=== PATIENT | female | born 1965 | race Caucasian/White ===

== ENCOUNTER 2016-08-15 13:53 | Outpatient (CLI) | payer OTHER | END 2016-08-15 13:54 | LOC: LABRHC 13:53 | PROVIDERS: ATTEND Family Medicine | DX: D22.61 Melanocytic nevi of right upper limb, including shoulder (principal) ==

== ENCOUNTER 2018-03-28 08:33 | Outpatient (CLI) | payer OTHER ==
[2018-03-28 09:37] LABS: eGFR (Non-African) > 60
[2018-03-28 17:40] LABS: BASO % 1.6 % (0.0-1.5); EOS % 3.5 % (0.0-6.8); LYMPH ABS # 1.75 thou/uL (0.60-4.00); MCH. 29.1 pg (28.0-34.0); MCV 88.3 fL (80.0-100.0); MONOCYTE % 8.9 % (0.0-11.0); MONOCYTE ABS # 0.52 thou/uL (0.00-0.90); PLATELET COUNT 270 thou/uL (130-400)
== END 2018-03-28 08:35 ==
LOC: LAB 08:33
PROVIDERS: ATTEND Family Medicine
DX: Z00.00 Encounter for general adult medical examination without abnormal findings (principal)
CPT/HCPCS: 36415; 80053; 80061; 84443; 85025

== ENCOUNTER 2019-01-10 06:16 | Emergency (ER) | payer OTHER ==
[2019-01-10] MEDS ORDERED: 0.9 % SODIUM CHLORIDE 1,000 ML IV ONE ×2 (06:38→06:40)
--- NOTE | 2019-01-10 06:42 | ED Physician Documentation ---
General Adult - HISTORIAN Historian: patient - HPI Stated Complaint: syncopal episode Chief Complaint: General Adult Onset: minutes Timing: better Severity: moderate Further Comments: yes (Pt is a 53 yo female who had a syncopal episode this am and came to ER by ambulance. Pt was went to the bathroom and was having a bm when the sycopal episode occurred. said pt was out for what seemed like 2 minutes, that she was staring blankly at him and that she was diaphoretic and pale. Pt has little PMHx. She takes lisinopril 10 mg qd for HTN. She does have an unusual bowel history. She ordinarily can go for many days, as much as a week, she says, without a bm, and then have an urgent bm. Pt states that these infrequent bm's start as solid stool, and then become watery, and that she then can have a number of bm's in the space of an hour. After arriving in ER, pt had a bm that had a significant amount of blood. She has had blood in her bm before after one of these episodes but not very often and not as much blood. Pt appears pale on presentation, with SBP about 102/74.) - ROS CONST: weakness EYES/ENT: none CVS/RESP: none GI/: other (difficult bm, blood in stool) MS/SKIN/LYMPH: none - PAST HX Past History: hypertension - SOCIAL HX Smoking History: non-smoker - FAMILY HX Family History: No - REVIEWED ASSESSMENTS Nursing Assessment Reviewed: Yes Vitals Reviewed: Yes <Sunita Pascual - Last Filed: 01/10/19 07:01> - ROS NEURO/PSYCH: denies: headache - PAST HX Other History: none Surgeries/Procedures: none - SOCIAL HX Alcohol Use: none Drug Use: none - VITAL SIGNS Vital Signs: Vital Signs Temp Pulse Resp BP Pulse Ox 96.7 F L 76 22 102/74 99 01/10/19 06:17 01/10/19 06:17 01/10/19 06:17 01/10/19 06:17 01/10/19 06:17 <Gladys Keita - Last Filed: 01/10/19 08:22> - PAST HX Allergies/Adverse Reactions: Allergies Allergy/AdvReac Type Severity Reaction Status Date / Time No Known Drug Allergies Allergy Verified 01/10/19 06:35 Progress - Progress Progress: NS 1 L IVF Care transferred to Gladys Monterolley at 0700. <Sunita Pascual - Last Filed: 01/10/19 07:01> - EKG/XRAY/CT EKG: NSR Comments: 0627 NSR [address] changes <Gladys Keita - Last Filed: 01/10/19 08:22> ED Results Lab/Radiology - Orders Orders: ED Orders Category Date Time Status Continuous EKG monitoring Q30M Care 01/10/19 06:39 Ordered Continuous Pulse Oximetry Q30M Care 01/10/19 06:[address] IV Lock 1T Care 01/10/19 06:39 Ordered CHEST 2VIEW [RAD] Stat Exams 01/10/19 Ordered CBC/PLATELET/DIFF Routine Lab 01/10/19 06:39 Ordered CMP Routine Lab 01/10/19 06:39 Ordered CREATINE KINASE Routine Lab 01/10/19 06:39 Ordered TROPONIN I Stat Lab 01/10/19 06:39 Ordered NORMAL SALINE @ 1000 MLS/HR ( 1000ml BOLUS) Med 01/10/19 06:38 Ordered 0.9 % Sodium Chloride [Normal Saline] 1,000 ml IV Q1H Oxygen Daily Oxygen 01/10/19 06:45 Ordered EKG WITH COMPARISON Stat Ther 01/10/19 06:39 Ordered <Sunita Pascual - Last Filed: 01/10/19 07:01> - Radiology Radiology Impressions: Report Submission Date: Jan 10, 2019 7:24:27 AM CDT Patient Study Name: MARK RIVERA Date: Jan 10, 2019 6:42:46 AM CDT Modality Type: DX Gender: F Description: CHEST 2VIEW : 69 Institution: [facility] Physician: SUNITA PASCUAL [facility] HISTORY: 53-year-old female with syncope COMPARISON: None available TECHNIQUE: 2 views of the chest were performed. FINDINGS: No pneumothorax, consolidative infiltrates, pleural effusions, or pulmonary edema. There is a calcified granuloma in the right upper lobe. The heart is not enlarged. IMPRESSION: Old granulomatous disease of the chest without evidence of acute intrathoracic process. Electronically signed on Jan 10, 2019 7:24:27 AM CDT by: Jose Courtney Report Submission Date: Jan 10, 2019 7:25:38 AM CDT Patient Study Name: MARK RIVERA Date: Jan 10, 2019 6:59:15 AM CDT Modality Type: DX Gender: F Description: ABDOMEN 1VIEW : 69 Institution: [facility] Physician: SUNITA PASCUAL - HISTORY: 53-year-old female with abdominal pain. COMPARISON: None available TECHNIQUE: AP views of the abdomen were performed. FINDINGS: No abnormal bowel dilatation. Gas is present in the distal colon. No abnormal calcifications are identified overlying the kidneys. There are numerous phleboliths in the pelvis. IMPRESSION: No evidence of bowel obstruction. Electronically signed on Jan 10, 2019 7:25:38 AM CDT by: Jose Courtney - Orders Orders: ED Orders Category Date Time Status Continuous EKG monitoring Q30M Care 01/10/19 06:39 Active Continuous Pulse Oximetry Q30M Care 01/10/19 06:[address] IV Lock 1T Care 01/10/19 06:39 Active ABDOMEN 1VIEW [RAD] Stat Exams 01/10/19 Ordered CHEST 2VIEW [RAD] Stat Exams 01/10/19 Ordered CBC/PLATELET/DIFF Routine Lab 01/10/19 06:39 Ordered CMP Routine Lab 01/10/19 06:39 Ordered CREATINE KINASE Routine Lab 01/10/19 06:39 Ordered TROPONIN I Stat Lab 01/10/19 06:39 Ordered 0.9 % Sodium Chloride [Normal Saline] 1,000 ml Med 01/10/19 06:40 Discontinued IV .STK-MED 0.9 % Sodium Chloride [Normal Saline] 1,000 ml Med 01/10/19 06:38 Active IV Q1H Oxygen Daily Oxygen 01/10/19 06:45 Ordered EKG WITH COMPARISON Stat Ther 01/10/19 06:39 Ordered <Gladys Keita - Last Filed: 01/10/19 08:22> General Adult Physical Exam - PHYSICAL EXAM GENERAL APPEARANCE: mild distress EENT: pharynx normal NECK: normal inspection, supple RESPIRATORY: no resp distress, chest non-tender, breath sounds normal CVS: reg rate & rhythm, heart sounds normal, equal pulses ABDOMEN: soft, no organomegaly, decreased BS BACK: normal inspection, no CVA tenderness SKIN: pallor EXTREMITIES: non-tender, normal range of motion, no evidence of injury NEURO: oriented X3, motor nml, sensation nml <Sunita Pascual - Last Filed: 01/10/19 07:01> Discharge <Sunita Pascual - Last Filed: 01/10/19 07:01> Comments: Cause of syncope is likely a vasovagal event in combination with mild dehydration. Decision to Admit: NO Date of Decison to Admit: 01/10/19 Decision Time: 07:50 <Gladys Keita - Last Filed: 01/10/19 08:22> Clincal Impression: Syncopal episode, Dehydration Referrals: Alisha Ibrahim MD [Primary Care Provider] - Additional Instructions: 1. Drink plenty of water to maintain proper hydration. Target daily intake 2-3 liters per 24 hours. Avoid caffeine and alcohol 2. Follow up with Dr. Ibrahim within 1 week. Discuss referral for colonoscopy. 3. Take daily probiotic and stool softener 4. Return to ER for new or worsening symptoms Condition: Stable Disposition: 01 HOME, SELF-CARE
[2019-01-10 07:27] LABS: SEGMENTED NEUTROPHILS % 60 % (39-79)
--- NOTE | 2019-01-10 07:35 | Diagnostic Imaging Report ---
SUNITA MCDANIELS [facility] [address] [facility] [address] [address] Report Submission Date: Jan 10, 2019 7:24:27 AM CDT Patient Study Name: MARK RIVERA Date: Jan 10, 2019 6:42:46 AM CDT Modality Type: DX Gender: F Description: CHEST 2VIEW : 69 Institution: [facility] Physician: SUNITA MCDANIELS HISTORY: 53-year-old female with syncope COMPARISON: None available TECHNIQUE: 2 views of the chest were performed. FINDINGS: No pneumothorax, consolidative infiltrates, pleural effusions, or pulmonary edema. There is a calcified granuloma in the right upper lobe. The heart is not enlarged. IMPRESSION: Old granulomatous disease of the chest without evidence of acute intrathoracic process. Electronically signed on Jan 10, 2019 7:24:27 AM CDT by: Jose CORDOBA
--- NOTE | 2019-01-10 07:35 | Diagnostic Imaging Report ---
SUNITA MCDANIELS [facility] [address] [facility] [address] [place] [address]. [id number] Report Submission Date: Jan 10, 2019 7:25:38 AM CDT Patient Study Name: MARK RIVERA Date: Jan 10, 2019 6:59:15 AM CDT Modality Type: DX Gender: F Description: ABDOMEN 1VIEW : 69 Institution: [facility] Physician: SUNITA MCDANIELS HISTORY: 53-year-old female with abdominal pain. COMPARISON: None available TECHNIQUE: AP views of the abdomen were performed. FINDINGS: No abnormal bowel dilatation. Gas is present in the distal colon. No abnormal calcifications are identified overlying the kidneys. There are numerous phleboliths in the pelvis. IMPRESSION: No evidence of bowel obstruction. Electronically signed on Jan 10, 2019 7:25:38 AM CDT by: Jose CORDOBA
[2019-01-10 07:43] LABS: eGFR (Non-African) > 60
[2019-01-10 08:41] VITALS: BP 102/72
== END 2019-01-10 08:33 | disposition home or self-care (01) ==
LOC: ED 06:16
DX: R55 Syncope and collapse (principal); E86.0 Dehydration
CPT/HCPCS: 36415; 71046; 74018; 80053; 82550; 84484; 85025; 93005; 96361; 96374; 99283; 99284; J7030